=== PATIENT | female | born 1945 | race Two or more races ===

== ENCOUNTER → 2018-03-04 | Outpatient (CLI) | payer OTHER | END | disposition home or self-care (01) | LOC: RAD 15:52 | PROVIDERS: ATTEND Physician Assistant | DX: K44.9 Diaphragmatic hernia without obstruction or gangrene (principal); J84.10 Pulmonary fibrosis, unspecified; R91.8 Other nonspecific abnormal finding of lung field | CPT/HCPCS: 71250 ==

== ENCOUNTER 2018-03-05 16:21 | Observation (INO) | payer OTHER ==
[~2018-03-05] VITALS: Ht 157.5 cm; Wt 55.6 kg
[2018-03-05] MEDS ORDERED: SODIUM CHLORIDE FLUSH 10ML SYR IVF ONE (17:00)
--- NOTE | 2018-03-05 17:22 | NUR ---
Assumed care of patient. C/O left later CP radiating across breast. Patient had CT yesterday shwoing chest mass and was told she needed to see an oncologist MATHEW. Due to insurance and scheduling issues, patient was not able to be seen outpatient. In ER today because she is concerned about hte urgency of her condition. Daughter at bedside. Will continue to monitor.
[2018-03-05 17:28] LABS: BASOPHILS # (AUTO) 0.02 x10^3/uL (0-0.1); BASOPHILS % (AUTO) 0 % (0-1); EOSINOPHILS # (AUTO) 0.15 x10^3/uL (0-0.4); EOSINOPHILS % (AUTO) 2 % (1-7); LYMPHOCYTES % (AUTO) 32 % (22-44); MD NO; MEAN CORPUSCULAR HEMOGLOBIN 31.4 pg (27.0-34.8); MEAN CORPUSCULAR HGB CONC 34.2 g/dL (32.4-35.8); MEAN CORPUSCULAR VOLUME 91.7 fL (80-100); MEAN PLATELET VOLUME 7.5 fL (7.4-10.4); MONOCYTES # (AUTO) 0.42 x10^3/uL (0.2-0.8); MONOCYTES % (AUTO) 7 % (2-9); NEUTROPHILS # (AUTO) 3.58 x10^3/uL (1.8-6.8); NEUTROPHILS % (AUTO) 58 % (42-75); PLATELET COUNT 356 x10^3/uL (130-400); RED BLOOD COUNT 4.55 x10^6/uL (3.82-5.3); RED CELL DISTRIBUTION WIDTH 14.1 % (9.6-15.2)
[2018-03-05 17:38] LABS: INTERNATIONAL NORMALIZED RATIO 0.98 (0.93-1.1); PROTHROMBIN TIME 10.4 Seconds (9.6-11.5)
[2018-03-05 17:41] LABS: ALANINE AMINOTRANSFERASE 20 U/L (12-78); ALBUMIN 3.5 g/dL (3.4-5.0); ANION GAP 8 mmol/L (5-15); CALCIUM 9.6 mg/dL (8.5-10.1); CHLORIDE 106 mmol/L (98-107); CREATININE 0.66 mg/dL (0.55-1.02)
[2018-03-05 17:43] LABS: ALKALINE PHOSPHATASE 147 U/L (45-117); BILIRUBIN,TOTAL 0.3 mg/dL (0.2-1.0); TOTAL PROTEIN 7.7 g/dL (6.4-8.2)
--- NOTE | 2018-03-05 18:33 | NUR ---
[facility] at bedside evaluating patient.
--- NOTE | 2018-03-05 19:25 | NUR ---
Resting in [facility]. Provided with blanket.
[2018-03-05] MEDS ORDERED: DOCUSATE 100 MG CAPSULE PO PRN (19:30)
[2018-03-05] MEDS ORDERED: hydrALAzine 20 MG/ML, 1ML IVPush PRN (19:30)
--- NOTE | 2018-03-05 19:54 | NUR ---
Report to GAVIN Vu
[2018-03-05] MEDS: TEMAZEPAM 15 MG CAPSULE PO PRN (20:45)
[2018-03-05 20:48] VITALS: BP 161/74
[2018-03-05] MEDS: LIDODERM 5% PATCH TD PRN (21:31)
[2018-03-06 01:56] VITALS: BP 124/70
[2018-03-06] MEDS: ONDANSETRON 2MG/ML, 2ML IVPush PRN ×3 (04:40→19:59)
[2018-03-06] MEDS ORDERED: LIDOCAINE-MPF 1%, 5ML ONE (08:06)
[2018-03-06] MEDS ORDERED: MIDAZOLAM 1 MG/ML, 5ML ONE (08:12)
[2018-03-06] MEDS ORDERED: FENTANYL PF 100 MCG/2ML ONE (08:12)
[2018-03-06] MEDS ORDERED: NALOXONE 1 MG/ML, 2ML ONE (08:12)
[2018-03-06] MEDS ORDERED: FLUMAZENIL 0.1 MG/1 ML, 5ML ONE (08:12)
[2018-03-06 09:47] VITALS: BP 157/96
[2018-03-06 14:00] VITALS: BP 167/77
[2018-03-06] MEDS: TEMAZEPAM 15 MG CAPSULE PO PRN (19:59)
[2018-03-06] MEDS: LIDODERM 5% PATCH TD PRN (19:59)
[2018-03-06 21:03] VITALS: BP 112/65
[2018-03-07 02:28] VITALS: BP 114/69
[2018-03-07 04:55] LABS: BASOPHILS # (AUTO) 0.02 x10^3/uL (0-0.1); BASOPHILS % (AUTO) 0 % (0-1); EOSINOPHILS # (AUTO) 0.06 x10^3/uL (0-0.4); EOSINOPHILS % (AUTO) 1 % (1-7); LYMPHOCYTES # (AUTO) 1.66 x10^3/uL (1-3.4); LYMPHOCYTES % (AUTO) 29 % (22-44); MD NO; MEAN CORPUSCULAR HEMOGLOBIN 30.5 pg (27.0-34.8); MEAN CORPUSCULAR VOLUME 92.6 fL (80-100); MEAN PLATELET VOLUME 7.8 fL (7.4-10.4); MONOCYTES # (AUTO) 0.48 x10^3/uL (0.2-0.8); MONOCYTES % (AUTO) 8 % (2-9); NEUTROPHILS # (AUTO) 3.55 x10^3/uL (1.8-6.8); NEUTROPHILS % (AUTO) 62 % (42-75); PLATELET COUNT 319 x10^3/uL (130-400); RED BLOOD COUNT 4.24 x10^6/uL (3.82-5.3); RED CELL DISTRIBUTION WIDTH 13.9 % (9.6-15.2)
[2018-03-07 05:04] LABS: ANION GAP 7 mmol/L (5-15); CALCIUM 9.3 mg/dL (8.5-10.1); CHLORIDE 104 mmol/L (98-107); CREATININE 0.69 mg/dL (0.55-1.02)
[2018-03-07 07:37] VITALS: BP 158/69
[2018-03-07] MEDS: PANTOPROZOLE 40MG TABLET PO SCH (07:40)
[2018-03-07 13:10] VITALS: BP 111/59
[2018-03-07] MEDS: TEMAZEPAM 15 MG CAPSULE PO PRN (21:32)
[2018-03-07] MEDS: LIDODERM 5% PATCH TD PRN (21:32)
[2018-03-07 21:33] VITALS: BP 156/8
[2018-03-08 03:27] VITALS: BP 114/67
[2018-03-08] MEDS: TEMAZEPAM 15 MG CAPSULE PO PRN (03:36)
[2018-03-08 05:10] LABS: ANION GAP 4 mmol/L (5-15); CALCIUM 8.7 mg/dL (8.5-10.1); CHLORIDE 107 mmol/L (98-107); CREATININE 0.77 mg/dL (0.55-1.02)
[2018-03-08 05:12] LABS: BASOPHILS # (AUTO) 0.03 x10^3/uL (0-0.1); BASOPHILS % (AUTO) 0 % (0-1); EOSINOPHILS # (AUTO) 0.14 x10^3/uL (0-0.4); EOSINOPHILS % (AUTO) 2 % (1-7); LYMPHOCYTES # (AUTO) 1.92 x10^3/uL (1-3.4); LYMPHOCYTES % (AUTO) 26 % (22-44); MD NO; MEAN CORPUSCULAR HEMOGLOBIN 31.2 pg (27.0-34.8); MEAN CORPUSCULAR HGB CONC 33.7 g/dL (32.4-35.8); MEAN CORPUSCULAR VOLUME 92.4 fL (80-100); MEAN PLATELET VOLUME 7.7 fL (7.4-10.4); MONOCYTES # (AUTO) 0.64 x10^3/uL (0.2-0.8); MONOCYTES % (AUTO) 9 % (2-9); NEUTROPHILS # (AUTO) 4.63 x10^3/uL (1.8-6.8); NEUTROPHILS % (AUTO) 63 % (42-75); PLATELET COUNT 305 x10^3/uL (130-400); RED BLOOD COUNT 4.12 x10^6/uL (3.82-5.3); RED CELL DISTRIBUTION WIDTH 13.9 % (9.6-15.2)
[2018-03-08] MEDS: PANTOPROZOLE 40MG TABLET PO SCH (06:45)
[2018-03-08 07:35] VITALS: BP 107/66
[2018-03-08 13:01] VITALS: BP 104/61
[2018-03-08] MEDS: ONDANSETRON 2MG/ML, 2ML IVPush PRN (17:06)
[2018-03-08] MEDS ORDERED: ESCI5SOL2 PO (18:51)
[2018-03-08] MEDS ORDERED: FENO150C4 PO (18:51)
[2018-03-08] MEDS ORDERED: OMEP20CA14 PO (18:51)
[2018-03-08] MEDS ORDERED: AMLO5TAB8 PO (18:51)
[2018-03-08] MEDS ORDERED: FERR300S PO (18:51)
[2018-03-08] MEDS ORDERED: QUET50TA PO (18:51)
[2018-03-08] MEDS ORDERED: LISI-420 PO (18:51)
[2018-03-08 20:00] VITALS: BP 113/63
[2018-03-09] MEDS: LIDODERM 5% PATCH TD PRN ×2 (01:20→22:02)
[2018-03-09 02:40] VITALS: BP 108/60
[2018-03-09 05:31] LABS: BASOPHILS # (AUTO) 0.04 x10^3/uL (0-0.1); BASOPHILS % (AUTO) 1 % (0-1); EOSINOPHILS # (AUTO) 0.23 x10^3/uL (0-0.4); EOSINOPHILS % (AUTO) 4 % (1-7); LYMPHOCYTES # (AUTO) 2.39 x10^3/uL (1-3.4); LYMPHOCYTES % (AUTO) 40 % (22-44); MD NO; MEAN CORPUSCULAR HEMOGLOBIN 31.1 pg (27.0-34.8); MEAN CORPUSCULAR HGB CONC 33.8 g/dL (32.4-35.8); MEAN PLATELET VOLUME 7.9 fL (7.4-10.4); MONOCYTES # (AUTO) 0.63 x10^3/uL (0.2-0.8); MONOCYTES % (AUTO) 11 % (2-9); NEUTROPHILS # (AUTO) 2.72 x10^3/uL (1.8-6.8); NEUTROPHILS % (AUTO) 45 % (42-75); PLATELET COUNT 299 x10^3/uL (130-400); RED BLOOD COUNT 3.96 x10^6/uL (3.82-5.3); RED CELL DISTRIBUTION WIDTH 14.1 % (9.6-15.2)
[2018-03-09 05:43] LABS: ANION GAP 3 mmol/L (5-15); CHLORIDE 107 mmol/L (98-107); CREATININE 0.76 mg/dL (0.55-1.02)
[2018-03-09] MEDS: PANTOPROZOLE 40MG TABLET PO SCH (06:41)
[2018-03-09 07:06] VITALS: BP 136/76
[2018-03-09 13:24] VITALS: BP 161/84
[2018-03-09] MEDS ORDERED: GADOBUTROL 7.5 MMOL/7.5 ML PFS ONE (15:52)
[2018-03-09] MEDS: ONDANSETRON 2MG/ML, 2ML IVPush PRN (18:23)
[2018-03-09 20:05] VITALS: BP 155/83
[2018-03-09] MEDS ORDERED: OMNIPAQUE 350 MG/ML, 100ML BOTTLE ONE (20:05)
[2018-03-09] MEDS: TEMAZEPAM 15 MG CAPSULE PO PRN (22:14)
[2018-03-10 02:05] VITALS: BP 103/64
[2018-03-10 04:37] LABS: BASOPHILS # (AUTO) 0.03 x10^3/uL (0-0.1); BASOPHILS % (AUTO) 1 % (0-1); EOSINOPHILS # (AUTO) 0.12 x10^3/uL (0-0.4); EOSINOPHILS % (AUTO) 2 % (1-7); LYMPHOCYTES # (AUTO) 1.65 x10^3/uL (1-3.4); LYMPHOCYTES % (AUTO) 29 % (22-44); MD NO; MEAN CORPUSCULAR HGB CONC 33.7 g/dL (32.4-35.8); MEAN PLATELET VOLUME 7.9 fL (7.4-10.4); MONOCYTES # (AUTO) 0.55 x10^3/uL (0.2-0.8); MONOCYTES % (AUTO) 10 % (2-9); NEUTROPHILS # (AUTO) 3.32 x10^3/uL (1.8-6.8); NEUTROPHILS % (AUTO) 59 % (42-75); PLATELET COUNT 319 x10^3/uL (130-400); RED BLOOD COUNT 4.17 x10^6/uL (3.82-5.3); RED CELL DISTRIBUTION WIDTH 13.8 % (9.6-15.2)
[2018-03-10 04:46] LABS: ANION GAP 5 mmol/L (5-15); CALCIUM 9.1 mg/dL (8.5-10.1); CHLORIDE 105 mmol/L (98-107)
[2018-03-10] MEDS: PANTOPROZOLE 40MG TABLET PO SCH (06:18)
[2018-03-10 07:33] VITALS: BP 119/66
[2018-03-10 13:00] VITALS: BP 183/98
[2018-03-10] MEDS ORDERED: TRAM50TA2 PO (15:47)
[2018-03-10 17:25] VITALS: BP 158/88
== END 2018-03-10 18:00 | disposition home health service (06) ==
LOC: ED 18:21 → EDIP 19:24 → 3NW 20:29
PROVIDERS: ADMIT Internal Medicine; ATTEND Internal Medicine
DX: C34.90 Malignant neoplasm of unspecified part of unspecified bronchus or lung (principal); C79.51 Secondary malignant neoplasm of bone; E78.5 Hyperlipidemia, unspecified; K44.9 Diaphragmatic hernia without obstruction or gangrene; K22.2 Esophageal obstruction; R91.8 Other nonspecific abnormal finding of lung field; Z59.7 Insufficient social insurance and welfare support; Z87.891 Personal history of nicotine dependence
CPT/HCPCS: 32405; 36415; 70553; 71045; 71101; 71260; 74177; 77012; 78306; 80048; 80053; 85025; 85610; 88305; 88360; 93005; 96374; 96375; 96376; 99156; 99157; 99284; A9503; A9585; C2613; C9898; G0378; J0360; J2250; J2405; J3010; Q9967; J2310

== ENCOUNTER 2018-03-25 07:58 | Day surgery (SDC) | payer MEDICARE, OTHER ==
[~2018-03-25] VITALS: Ht 152.4 cm; Wt 54.7 kg
[~2018-03-25 07:58] MED LIST: AMLO5TAB8 PO; ESCI5SOL2 PO; FENO150C4 PO; FERR300S PO; LISI-420 PO; OMEP20CA14 PO; QUET50TA PO; TRAM50TA2 PO
[2018-03-25] MEDS ORDERED: SODIUM CHLORIDE 0.9% 1,000 ML IV SCH (08:42)
[2018-03-25 09:13] VITALS: BP 162/90
[2018-03-25] MEDS ORDERED: HYDR-3240 PO (09:18)
[2018-03-25] MEDS ORDERED: AMLO-150 PO (09:18)
[2018-03-25] MEDS ORDERED: LIDOCAINE-MPF 1%, 5ML ONE ×2 (09:51→09:52)
[2018-03-25] MEDS ORDERED: FLUMAZENIL 0.1 MG/1 ML, 5ML ONE (10:01)
[2018-03-25] MEDS ORDERED: NALOXONE 1 MG/ML, 2ML ONE (10:01)
[2018-03-25] MEDS ORDERED: FENTANYL PF 100 MCG/2ML ONE (10:01)
[2018-03-25] MEDS ORDERED: MIDAZOLAM 1 MG/ML, 5ML ONE (10:01)
== END 2018-03-25 12:17 | disposition home or self-care (01) ==
LOC: OUT 07:58
PROVIDERS: ATTEND Radiology Radiation Oncology
DX: C79.51 Secondary malignant neoplasm of bone (principal); Z90.710 Acquired absence of both cervix and uterus; Z90.49 Acquired absence of other specified parts of digestive tract; Z98.890 Other specified postprocedural states; Z88.5 Allergy status to narcotic agent; Z88.8 Allergy status to other drugs, medicaments and biological substances
CPT/HCPCS: 20220; 77012; 88307; 88311; 99156; J2250; J3010; J7030; 88341; 88342; 99157; J2310

== ENCOUNTER → 2018-03-30 | Outpatient (CLI) | payer MEDICARE, OTHER ==
[~2018-03-30] MED LIST changes: +AMLO-150 PO; +GADOBUTROL 7.5 MMOL/7.5 ML PFS ONE; +HYDR-3240 PO
== END | disposition home or self-care (01) ==
LOC: RAD 12:59
PROVIDERS: ATTEND Radiology Radiation Oncology
DX: M51.25 Other intervertebral disc displacement, thoracolumbar region (principal); M47.812 Spondylosis without myelopathy or radiculopathy, cervical region; M48.02 Spinal stenosis, cervical region; C34.12 Malignant neoplasm of upper lobe, left bronchus or lung; C79.51 Secondary malignant neoplasm of bone
CPT/HCPCS: 72156; 72157; 72158; A9585

== ENCOUNTER 2018-04-23 07:34 | Outpatient (CLI) | payer MEDICARE ==
[~2018-04-23 07:34] MED LIST changes: +AMLO5TAB10 PO; -AMLO5TAB8 PO; -GADOBUTROL 7.5 MMOL/7.5 ML PFS ONE
== END 2018-04-23 23:59 | disposition home or self-care (01) ==
LOC: ROC 07:34
PROVIDERS: ATTEND Radiology Radiation Oncology
DX: C34.12 Malignant neoplasm of upper lobe, left bronchus or lung (principal); C79.31 Secondary malignant neoplasm of brain
CPT/HCPCS: 99213; G0463

== ENCOUNTER 2018-05-08 07:28 | Outpatient (CLI) | payer MEDICARE | END 2018-05-08 23:59 | disposition home or self-care (01) | LOC: ROC 07:28 → EDSTATUS 03-16 10:24 | PROVIDERS: ATTEND Radiology Radiation Oncology | DX: Z02.9 Encounter for administrative examinations, unspecified (principal) ==

== ENCOUNTER → 2018-05-13 | Outpatient (CLI) | payer MEDICARE ==
[~2018-05-13] MED LIST changes: +GADOBUTROL 7.5 MMOL/7.5 ML PFS ONE
== END | disposition home or self-care (01) ==
LOC: CFH 05-07 08:20 → RAD 09:16
PROVIDERS: ATTEND Radiology Radiation Oncology
DX: C79.31 Secondary malignant neoplasm of brain (principal); C34.12 Malignant neoplasm of upper lobe, left bronchus or lung
CPT/HCPCS: 70553; A9585

== ENCOUNTER 2018-05-14 07:03 | Outpatient (CLI) | payer MEDICARE ==
[~2018-05-14 07:03] MED LIST changes: -GADOBUTROL 7.5 MMOL/7.5 ML PFS ONE
== END 2018-05-14 23:59 | disposition home or self-care (01) ==
LOC: ROC 07:03
PROVIDERS: ATTEND Radiology Radiation Oncology
DX: Z08 Encounter for follow-up examination after completed treatment for malignant neoplasm (principal); C79.31 Secondary malignant neoplasm of brain
CPT/HCPCS: 99212; G0463

== ENCOUNTER 2018-05-31 12:32 | Emergency (ER) | payer MEDICARE ==
[~2018-05-31] VITALS: Ht 152.4 cm; Wt 47.9 kg
[2018-05-31 13:02] LABS: BASOPHILS # (AUTO) 0.01 x10^3/uL (0-0.1); BASOPHILS % (AUTO) 0 % (0-1); EOSINOPHILS # (AUTO) 0.01 x10^3/uL (0-0.4); EOSINOPHILS % (AUTO) 0 % (1-7); LYMPHOCYTES # (AUTO) 0.67 x10^3/uL (1-3.4); LYMPHOCYTES % (AUTO) 5 % (22-44); MD NO; MEAN CORPUSCULAR HEMOGLOBIN 29.7 pg (27.0-34.8); MEAN CORPUSCULAR HGB CONC 33.4 g/dL (32.4-35.8); MEAN PLATELET VOLUME 6.9 fL (7.4-10.4); MONOCYTES # (AUTO) 0.37 x10^3/uL (0.2-0.8); MONOCYTES % (AUTO) 3 % (2-9); NEUTROPHILS # (AUTO) 11.25 x10^3/uL (1.8-6.8); NEUTROPHILS % (AUTO) 91 % (42-75); PLATELET COUNT 336 x10^3/uL (130-400); RED BLOOD COUNT 4.68 x10^6/uL (3.82-5.3); RED CELL DISTRIBUTION WIDTH 14.1 % (9.6-15.2)
[2018-05-31 13:13] LABS: ALANINE AMINOTRANSFERASE 25 U/L (12-78); ALBUMIN 2.6 g/dL (3.4-5.0); ANION GAP 6 mmol/L (5-15); CALCIUM 8.5 mg/dL (8.5-10.1); CHLORIDE 101 mmol/L (98-107)
[2018-05-31 13:15] LABS: ALKALINE PHOSPHATASE 464 U/L (45-117); BILIRUBIN,TOTAL 0.5 mg/dL (0.2-1.0); TOTAL PROTEIN 7.1 g/dL (6.4-8.2)
[2018-05-31] MEDS ORDERED: SODIUM CHLORIDE 0.9% 1,000ML IVBOLUS ONE (13:30)
[2018-05-31] MEDS ORDERED: OMNIPAQUE 350 MG/ML, 100ML BOTTLE ONE (14:14)
[2018-05-31] MEDS ORDERED: PIPERACILLIN/TAZO/PMX 3.375GM 50 ML ONE (14:42)
[2018-05-31] MEDS ORDERED: HYDROmorphone 1 MG/ML, 1ML ONE (14:43)
--- NOTE | 2018-05-31 14:49 | NUR ---
ambulated across [place] to bathroom with assistance of sister. family at bedside. verified with md no blood cultures prior to antibiotics. pt states that she has pain with movement. to be medicated for pain. social security assessor to come speak with pt and family about treatment options.
[2018-05-31] MEDS ORDERED: PIPERACILLIN/TAZO/PMX 3.375GM 50 ML IV ONE (15:00)
[2018-05-31] MEDS ORDERED: HYDROmorphone 2 MG/ML, 1ML IVPush PRN (15:00)
[2018-05-31] MEDS ORDERED: ONDANSETRON 2MG/ML, 2ML ONE (15:10)
[2018-05-31] MEDS ORDERED: ONDANSETRON 2MG/ML, 2ML IVPush ONE (15:30)
[2018-05-31 16:00] VITALS: BP 136/79
--- NOTE | 2018-05-31 16:13 | NUR ---
FAMILY, PT, ER MD AND WEIGHT ANALYST TAKING ABOUT OPTIONS AVAILABLE.
--- NOTE | 2018-05-31 16:50 | NUR ---
MULTIPLE FAMILY MEMBERS ROTATING THROUGH BEDSIDE.
--- NOTE | 2018-05-31 17:53 | NUR ---
GIVEN D/C WITH HOSPICE TO COME TO PT'S HOUSE TOMORROW
== END 2018-05-31 17:56 | disposition home or self-care (01) ==
LOC: ED 14:49
DX: K63.1 Perforation of intestine (nontraumatic) (principal); R06.02 Shortness of breath; R42 Dizziness and giddiness; Z85.118 Personal history of other malignant neoplasm of bronchus and lung
CPT/HCPCS: 36415; 74177; 80053; 83605; 83690; 85025; 96365; 96366; 96375; 99291; J1170; J2405; J2543; J7030; Q9967

== ENCOUNTER 2018-06-13 14:23 | Inpatient (IN) | payer MEDICARE ==
[~2018-06-13] VITALS: Ht 154.9 cm; Wt 49.5 kg
[2018-06-13] MEDS ORDERED: SODIUM CHLORIDE 0.9% 1,000ML IVBOLUS ONE (15:00)
[2018-06-13] MEDS ORDERED: PROMETHAZINE 25 MG/ML, 1ML IM ONE (15:00)
[2018-06-13 15:10] LABS: BASOPHILS # (AUTO) 0.03 x10^3/uL (0-0.1); BASOPHILS % (AUTO) 0 % (0-1); EOSINOPHILS # (AUTO) 0.15 x10^3/uL (0-0.4); EOSINOPHILS % (AUTO) 2 % (1-7); LYMPHOCYTES # (AUTO) 1.02 x10^3/uL (1-3.4); LYMPHOCYTES % (AUTO) 12 % (22-44); MD NO; MEAN CORPUSCULAR HEMOGLOBIN 29.3 pg (27.0-34.8); MEAN CORPUSCULAR HGB CONC 33.4 g/dL (32.4-35.8); MEAN CORPUSCULAR VOLUME 87.5 fL (80-100); MEAN PLATELET VOLUME 7.3 fL (7.4-10.4); MONOCYTES # (AUTO) 0.39 x10^3/uL (0.2-0.8); MONOCYTES % (AUTO) 4 % (2-9); NEUTROPHILS # (AUTO) 7.29 x10^3/uL (1.8-6.8); NEUTROPHILS % (AUTO) 82 % (42-75); PLATELET COUNT 312 x10^3/uL (130-400); RED CELL DISTRIBUTION WIDTH 14.8 % (9.6-15.2)
[2018-06-13 15:18] LABS: ALANINE AMINOTRANSFERASE 23 U/L (12-78); ALBUMIN 2.6 g/dL (3.4-5.0); ANION GAP 10 mmol/L (5-15); CALCIUM 8.3 mg/dL (8.5-10.1); CHLORIDE 99 mmol/L (98-107); CREATININE 1.36 mg/dL (0.55-1.02)
[2018-06-13 15:21] LABS: ALKALINE PHOSPHATASE 544 U/L (45-117); BILIRUBIN,TOTAL 0.7 mg/dL (0.2-1.0); TOTAL PROTEIN 6.9 g/dL (6.4-8.2)
[2018-06-13] MEDS ORDERED: HYDROmorphone 1 MG/ML, 1ML AMP ONE ×2 (15:22→16:36)
[2018-06-13] MEDS ORDERED: PROMETHAZINE 25 MG/ML, 1ML ONE (15:22)
[2018-06-13] MEDS: HYDROmorphone 2 MG/ML, 1ML IVPush PRN ×2 (15:27→16:39)
--- NOTE | 2018-06-13 15:30 | NUR ---
PT PRESENTS TO ED WITH FAMILY, C/O GENERALIZED ABD PAIN AND N/V X 1 MONTH. PT SEEN AND DIAGNOSED 05/31 WITH PERFORATED BOWEL , BUT SURGERY WAS NOT PURSUED PT ELECTED TO BE PLACED ON HOSPICE. PT CHOSE TO COME TO HOSPITAL DESPITE HOSPICE STATUS DUE TO INADEQUATE PAIN AND NAUSEA CONTROL. BP AND SPO2 MONITORS IN PLACE. CALL LIGHT IN REACH. FAMILY AT BEDSIDE.
--- NOTE | 2018-06-13 15:45 | NUR ---
PT IN CT AT THIS TIME.
--- NOTE | 2018-06-13 16:41 | NUR ---
PT REPORTS ABD PAIN LEVEL 5/10 , DOWN FROM 7/10 AFTER FIRST DOSE DILAUDID, REQUESTS SECOND DOSE. PT MEDICATED PER EMAR, TOLERATED WELL. BP AND SPO2 MONITORS IN PLACE. EDMD LAW AT BEDSIDE TO UPDATE PT AND FAMILY WITH RESULTS AND POC.
[2018-06-13] MEDS ORDERED: HYDR2TAB29 PO (16:48)
[2018-06-13] MEDS ORDERED: DOCU-131 PO (16:48)
[2018-06-13] MEDS ORDERED: LORA0.5T PO (16:48)
[2018-06-13] MEDS ORDERED: PANT40TA3 PO (16:48)
[2018-06-13] MEDS ORDERED: MORP-52 PO (16:48)
[2018-06-13] MEDS ORDERED: DEXAMETHASONE PO (16:48)
[2018-06-13] MEDS ORDERED: ONDA8TAB16 SL (16:48)
[2018-06-13] MEDS ORDERED: MORPHINE LIQUID PO (16:49)
--- NOTE | 2018-06-13 17:00 | NUR ---
pt sleeping, resps even and unlabored. family at bedside.
--- NOTE | 2018-06-13 17:30 | NUR ---
pt reports pain level tolerable, no n/v. pt up to bathroom to void, gait steady, accompanied by family.
[2018-06-13] MEDS ORDERED: OMNIPAQUE 350 MG/ML, 100ML BOTTLE ONE (17:49)
--- NOTE | 2018-06-13 18:00 | NUR ---
report given to receiving RN Darlene pt awaiting transport to [facility].
--- NOTE | 2018-06-13 18:04 | NUR ---
report given to aguila So.
--- NOTE | 2018-06-13 18:30 | NUR ---
PT TAKEN TO FLOOR.
[2018-06-13 18:49] VITALS: BP 129/85
[2018-06-13] MEDS ORDERED: LORazepam INTENSOL 2 MG/ML SL PRN (20:00)
[2018-06-13] MEDS ORDERED: ATROPINE OPHTH SOLN 1%, 2ML BC PRN (20:00)
[2018-06-13] MEDS ORDERED: SCOPOLAMINE PATCH, 1.5MG PATCH.TD72 TD PRN (20:00)
[2018-06-13] MEDS: MORPHINE SULFATE 4 MG/ML, 1ML IVPush PRN (22:43)
[2018-06-13] MEDS: PROCHLORPERAZINE 5 MG/ML, 2ML IVPush PRN (22:43)
[2018-06-14] MEDS: MORPHINE SULFATE 4 MG/ML, 1ML IVPush PRN ×4 (05:51→21:41)
[2018-06-14] MEDS ORDERED: HYDROmorphone 2MG TABLET PO PRN (12:30)
[2018-06-14] MEDS ORDERED: morphine SULFATE ORAL.CONC 20 MG/ML PO PRN (12:30)
[2018-06-14] MEDS ORDERED: LORazepam 0.5MG TABLET PO PRN (12:30)
[2018-06-14] MEDS: DOCUSATE 100 MG CAPSULE PO SCH (19:27)
[2018-06-14] MEDS: PROCHLORPERAZINE 5 MG/ML, 2ML IVPush PRN ×2 (19:32→23:50)
[2018-06-14] MEDS ORDERED: DEXAMETHASONE 4 MG PO SCH (21:00)
[2018-06-15] MEDS: MORPHINE SULFATE 4 MG/ML, 1ML IVPush PRN (03:04)
[2018-06-15] MEDS ORDERED: DEXAMETHASONE 4 MG TABLET ONE (10:25)
[2018-06-15] MEDS: DEXAMETHASONE 4 MG TABLET PO SCH (10:38)
[2018-06-15] MEDS: ONDANSETRON ODT 8 MG SL PRN (10:38)
[2018-06-15] MEDS: PANTOPROZOLE 40MG TABLET PO SCH (10:38)
[2018-06-15] MEDS: DOCUSATE 100 MG CAPSULE PO SCH ×2 (12:17→21:32)
[2018-06-16] MEDS: ONDANSETRON ODT 8 MG SL PRN ×2 (03:05→11:15)
[2018-06-16] MEDS: PANTOPROZOLE 40MG TABLET PO SCH (08:48)
[2018-06-16] MEDS: DEXAMETHASONE 4 MG TABLET PO SCH (08:48)
[2018-06-16] MEDS: DOCUSATE 100 MG CAPSULE PO SCH (08:49)
[2018-06-16] MEDS: PROCHLORPERAZINE 5 MG/ML, 2ML IVPush PRN (11:15)
== END 2018-06-16 12:15 | disposition hospice, inpatient (51) | DRG 393 ==
LOC: ED 14:56 → 3NW 18:44
PROVIDERS: ADMIT Internal Medicine; ATTEND Internal Medicine
DX: K63.1 Perforation of intestine (nontraumatic) (principal); N17.0 Acute kidney failure with tubular necrosis; E43 Unspecified severe protein-calorie malnutrition; K56.2 Volvulus; E87.2 Acidosis; E87.1 Hypo-osmolality and hyponatremia; C79.51 Secondary malignant neoplasm of bone; C78.00 Secondary malignant neoplasm of unspecified lung; R00.0 Tachycardia, unspecified; R07.81 Pleurodynia; E78.5 Hyperlipidemia, unspecified; E86.0 Dehydration; K44.9 Diaphragmatic hernia without obstruction or gangrene; K76.9 Liver disease, unspecified; Z51.5 Encounter for palliative care; Z68.20 Body mass index [BMI] 20.0-20.9, adult; Z83.3 Family history of diabetes mellitus; Z85.841 Personal history of malignant neoplasm of brain; Z88.6 Allergy status to analgesic agent; Z88.8 Allergy status to other drugs, medicaments and biological substances
CPT/HCPCS: 36415; 74177; 80053; 85025; 96361; 96372; 96374; 99285; G0378; J1170; J2550; Q0162; Q9967; J0780; J7030